=== PATIENT | female | born 1990 ===

== ENCOUNTER 2025-08-07 17:40 | Emergency (ER) | payer MEDICAID ==
[~2025-08-07] VITALS: Ht 162.5 cm; Wt 63.5 kg
[2025-08-07] MEDS ORDERED: predniSONE 20 MG TAB PO ONE (18:15)
[2025-08-07] MEDS ORDERED: Acetaminophen/Hydrocodone 5 MG/325 MG TABLET PO ONE (18:15)
[2025-08-07] MEDS ORDERED: HYDROCODONE-AC1 EAC1 PO (19:40)
== END 2025-08-07 19:52 | disposition home or self-care (01) ==
LOC: ED 17:40
DX: M25.511 Pain in right shoulder (principal)